=== PATIENT | female | born 1940 | race Caucasian/White ===

== ENCOUNTER 2020-01-20 14:05 | Emergency (ER) | payer OTHER ==
[~2020-01-20] VITALS: Ht 162.6 cm; Wt 68.0 kg
[2020-01-20 14:09] VITALS: BP 126/52; Ht 162.6 cm; Wt 68.0 kg
[2020-01-20 15:00] LABS: BASOPHIL % 0.4 % (0-2); PLATELET COUNT 290 x10^3mcL (130-400); RED CELL DISTRIBUTION WIDTH 14.2 % (11.5-14.5)
[2020-01-20 15:08] LABS: CALCIUM 8.3 mg/dL (8.5-10.1); CARBON DIOXIDE 31.3 mmol/L (21-32); CHLORIDE SERUM 101 mmol/L (98-107); CREATININE SERUM 1.3 mg/dL (0.6-1.0); GLUCOSE SERUM 303 mg/dL (74-106); POTASSIUM SERUM 4.1 mmol/L (3.5-5.1); SODIUM SERUM 139 mmol/L (136-145)
[2020-01-20 15:21] LABS: microscopic required? NO
[2020-01-20 15:27] LABS: urine erythrocyte NEGATIVE (NEGATIVE)
== END 2020-01-20 16:16 | disposition home or self-care (01) ==
LOC: ED 14:05
PROVIDERS: Emergency Medicine
DX: J20.9 Acute bronchitis, unspecified (principal); I10 Essential (primary) hypertension; E11.9 Type 2 diabetes mellitus without complications; E66.9 Obesity, unspecified
CPT/HCPCS: 36415; 87804; Q0092